=== PATIENT | female | born 1965 | race African-American/Black ===

== ENCOUNTER → 2021-06-20 10:49 | Outpatient (CLI) | payer BC, SELFPAY ==
--- NOTE | ~2021-06-20 | US_ITS ---
EXAMINATION: US pelvic complete w TV DATE: 06/20/2021 11:22 INDICATION: Postmenopausal bleeding TECHNIQUE: Multiple transabdominal and endovaginal sonographic images of the pelvis were obtained. COMPARISON: None. FINDINGS: The uterus measures 5.8 x 2.9 x 3.9 cm. The endometrial complex measures 4 mm. The right ov floyd is not visualized however no right adnexal abnormality is seen. The left ovary measures 1.8 x 2 x 1.7 cm. There is normal vascular flow in the left ovary. There is no free fluid in the pelvis. IMPRESSION: 1. No sonographic correlate for the patient's symptoms. Reviewed, dictated and finalized at location A. BUMPER
== END ==
PROVIDERS: PCP Nurse Practitioner Family; Visit Provider Nurse Practitioner Family
DX: N95.0 Postmenopausal bleeding (principal)
CPT/HCPCS: 76830; 76856

== ENCOUNTER 2022-01-08 10:38 | Outpatient (CLI) | payer OTHER, BC, SELFPAY ==
--- NOTE | ~2022-01-08 | US_ITS ---
EXAMINATION: US transvaginal DATE: 01/08/2022 11:12 INDICATION: Postmenopausal bleeding Comparison:Ultrasound dated 06/20/2021 TECHNIQUE: Multiple transabdominal and endovaginal sonographic images of the pelvis performed. FINDINGS: The uterus measures 6.2 x 3.4 x 4.2 cm. The endometrial complex measures 3.5 mm. The ovaries are not visualized. There is no free fluid in the pelvis. There are no abnormal masses seen on either side. IMPRESSION: 1. Unremarkable pelvic ultrasound. Reviewed, dictated and finalized at location A.
== END 2022-01-08 10:39 ==
LOC: MICIMG 10:39
PROVIDERS: PCP Nurse Practitioner Family; Visit Provider Nurse Practitioner
DX: N95.0 Postmenopausal bleeding (principal)
CPT/HCPCS: 76830

== ENCOUNTER 2022-04-06 10:39 | Outpatient (CLI) | payer OTHER, BC, SELFPAY ==
--- NOTE | ~2022-04-06 | DEXA_ITS ---
Bone Density Report Name: CASTILLO TORIBIO Age: 56 Sex: Female Ethnicity: Black Date of : 1965 Indication: osteopenia; monitoring treatment; height loss; asthma or emphysema; postmenopausal Referring Provider: JEAN, YANDEL Study: Bone densitometry was performed. Exam Date: April 06, 2022 Accession number: [id number] Bone Density: Region BMD T-score Z-score Classification AP Spine (L1-L4) 1.018 -0.3 0.3 Normal Femoral Neck (Left) 0.707 -1.3 -0.7 Osteopenia Total Hip (Left) 0.877 -0.5 -0.3 Normal Femoral Neck (Right) 0.653 -1.8 -1.1 Osteopenia Total Hip (Right) 0.817 -1.0 -0.7 Normal Total Hip Mean 0.847 -0.8 -0.5 Normal World Health Organization criteria for BMD impression classify patients as: Normal (T-score at or above -1.0), Osteopenia (T-score between -1.0 and -2.5), or Osteoporosis (T-score at or below -2.5). 10-year Fracture Risk: FRAX not reported because: Treated for osteoporosis Previous Exams: Region Exam Age BMD T-score BMD Change BMD Change Date g/cm2 vs Baseline vs Previous AP Spine(L1-L4) 04/06/2022 56 1.018 -0.3 0.058* 0.058* 07/27/2019 54 0.959 -0.8 Total Hip(Left) 04/06/2022 56 0.877 -0.5 0.018 0.018 07/27/2019 54 0.859 -0.7 Total Hip(Right) 04/06/2022 56 0.817 -1.0 0.017 0.017 07/27/2019 54 0.800 -1.2 *Denotes significance at 95% confidence level, LSC for AP Spine = 0.022 g/cm2, LSC for Total Hip = 0.027 g/cm2 Clinical Information Provided by Patient: Is being treated for osteoporosis Has used the following medications: HRT (i.e. estrogen/hormone therapy) Has the following medical conditions: Asthma or Emphysema Patient maximum height was 59 Menopause Age: 49 No regular weight bearing exercise Onset of menses at age 13 Number of children 3 Impression: The patient has low bone mass, based on the Right Femoral Neck T-score. No significant bone loss was observed. Discussion: PATIENT UNDER TREATMENT WITH NO SIGNIFICANT BMD LOSS SINCE LAST EXAM. In an untreated patient, BMD typically declines with age. A lack of decline or gain is usually a sign that treatment is efficacious and fracture risk is reduced. It is important to ask patients whether they are taking their medications and to encourage continued and appropriate compliance with their osteoporosis therapies to reduce fracture risk. It is also important to review their risk factors and en
== END 2022-04-06 10:40 ==
LOC: MICIMG 10:40
PROVIDERS: PCP Nurse Practitioner Family; Visit Provider Nurse Practitioner
DX: M81.0 Age-related osteoporosis without current pathological fracture (principal); M85.852 Other specified disorders of bone density and structure, left thigh; M85.851 Other specified disorders of bone density and structure, right thigh
CPT/HCPCS: 77080

== ENCOUNTER 2024-06-16 12:30 | Outpatient (CLI) | payer BC, SELFPAY ==
--- NOTE | ~2024-06-16 | XR_ITS ---
Clinical Indication: Preoperative clear PA and lateral views of the chest: Comparison: None Findings: The lungs are clear, without evidence of focal consolidation or pleural effusion. Cardiome diastinal silhouette is within normal limits. Bones and soft tissues are unremarkable. Impression: Normal chest. Reviewed, dictated and finalized at location . [facility] Impression: Normal chest.
--- NOTE | 2024-06-16 13:01 | ECG_ITS ---
Test Date: 2024-06-16 13:08:37 Measurements Intervals [place] Rate: 68 P: 55 CO: 160 QRS: 61 QRSD: 81 T: 61 QT: 328 QTc: 349 Interpretive Statements SINUS RHYTHM NONSPECIFIC T-WAVE ABNORMALITY No previous ECG available for comparison Electronically Signed On 06-16-2024 18:45:12 TECHNICAL STAFF ENGINEER by Melissa Adams M.D.
--- OUTSIDE RECORDS SUMMARY | 2024-06-16 13:08 | XMS_ITS | CONTINUITY OF CARE DOCUMENT ---
Author Name janneth lagunas Address Unknown Organization [facility] Address [address] [facility] [address] [place] [address] Phone [phone] Care Team Providers Care Windows Systems Admin Name Role Phone Ethan You MD Unavailable MABEL GARCIA Unavailable [phone] MABEL GARCIA Unavailable [phone] INS[employer]ANCE PROVID[employer] Payer name Policy type / Coverage type [place] red green party ID [facility] [id number]
--- OUTSIDE RECORDS SUMMARY | 2024-06-16 13:08 | XMS_ITS | Continuity of Care Document ---
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 [place], [address], [place] - S AURSOS 04/13/2024 11:31:57 OBGyn Episode No OBEpisode recorded.
--- OUTSIDE RECORDS SUMMARY | 2024-06-16 13:08 | XMS_ITS | Data Portability ---
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 Sm[facility] 04/22/2023 13:39:59 Do You Have An Advance Directive? No [id number] Information not available 09/02/2022 What Is Your Level Of Alcohol Consumption? None [id number].0301 [id number] Information not available 09/02/2022 How Many Years Have You Consumed Alcohol? 0 Information not available 04/22/2023 What Is Your Level Of Caffeine Consumption? Moderate [id number] Information not available 09/02/2022 How Much Tobacco Do You Chew? None [id number] [id number] Information not available 09/02/2022 In The 14 [...] Type Of Diet Are You Following? REGULAR MIGRATION.0306 [id number] Information not available 09/02/2022 Which Illicit Or Recreational Drugs Have You Used? None Information not available 04/22/2023 Do You Or Have You Ever Used E-cigarettes Or Vape? Never Used Electronic Cigarettes Information not available 04/22/2023 What Is The Highest Grade Or Level Of School You Have Completed Or The Highest Degree You Have Received? [id number] Information not available 04/22/2023 Do You Have An Electrostatic Air Filter? 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 Never Used Smokeless Tobacco MIGRATION.[id number] [id number] Information not available 09/02/2022 Are There Any Smokers In Your House? No Information not available 04/22/2023 How Much Tobacco Do You Smoke? No MIGRATION.0301 [id number] Information not available 09/02/2022 Do You Feel Stressed (tense, Restless, Nervous, Or Anxious, Or Unable To Sleep At Night)? [id number] Information not available 04/22/2023 Do You Use Sunscreen Routinely? Yes Summer Information not available 04/22/2023 Have You Recently Traveled Abroad? No Information not available 04/22/2023 Do You Have Any Dietary Restrictions? No Information not available 04/22/2023 Sex: Female Functional Status Question Answer Note LastModified by Organizat ion Details LastModified Time What is your exercise level? Moderate [id number] Information not available 09/02/2022 Mental Status None recorded. Family History Relationship Description Onset Age of this Age Resolved Age Notes LastModified by Organization Details LastModified Time Mother Hypertensive disorder [id number] Not available 09/02/2022 02:51:44 Mother Diabetes mellitus MIGRATION.341 [id number] Not available 09/02/2022 02:51:44 Brother Hypertensive disorder MIGRATION.451 [id number] Not available 09/02/2022 02:51:44 Brother Diabetes mellitus MIGRATION.387 [id number] Not available 09/02/2022 02:51:45 Brother Obstructive sleep apnea syndrome Not available 2022 13:39:55 Sister Hypertensive disorder MIGRATION.267 [id number] Not available 09/02/2022 02:51:45 Sister Hypertensive disorder MIGRATION.955 [id number] Not available 09/02/2022 02:51:45 Sister Obstructive sleep apnea syndrome Not available 2022 13:39:55 Father Chronic obstructive pulmonary disease Not available 2022 13:39:55 Son Asthma MIGRATION.039 [id number] Not available 09/02/2022 02:51:45 Medical History Condition [...] HAVE YOU BEEN HOSPITALIZED OR SEEN IN [facility] IN THE PAST YEAR ? N ATHEROSCLEROSIS [...] Influenza, recombinant, quadrivalent, PF 4 completed Mariana Day, [employer] [address], [place], [address], [facility] 09/22/2023 16:24:25 Pneumococcal conjugate PCV20, polysaccharide [id number] conjugate, adjuvant, PF 4 completed Mariaan Day, [employer] [address], [place], [address], [facility] 01/10/2024 15:46:48 Influenza, recombinant, quadrivalent, PF 4 completed Mariana Day, [facility] [address], [place], [address], [facility] 04/13/2024 11:19:20 Past Encounters Encounter ID Performer Location Encounter Start Date Encounter Closed Date Diagnosis/Indication Diagnosis SNOMED-CT Code Diagnosis ICD10 Code [id number] [facility] Internal Med [facility] [address] [address] 09/26/2020 00:00:00 09/26/2020 19:14:03 [id number] [facility] Internal [facility] [address] [address] 10/24/2020 00:00:00 10/24/2020 15:45:29 [id number] [facility] Internal Med [facility] [address] [place], [place] [address]., [address] [address] 11/22/2020 00:00:00 11/22/2020 19:39:14 [id number] [facility] Internal Med [facility] [address] [address] 12/19/2020 00:00:00 12/19/2020 15:07:39 [id number] [facility] Internal Med [facility] [address] [place] [address] Ave[address] [facility] 15 [place] [address] 02/03/2021 00:00:00 02/03/2021 13:22:35 [id number] [facility] Internal Med [facility] [address] [place] [address] [address] [address] 02/24/2021 00:00:00 02/24/2021 14:15:14 [id number] [facility] [place] [address] [place] [address] 06/03/2021 00:00:00 06/03/2021 14:10:36 [id number] [facility] [place] [address] [place] [address] 07/01/2021 00:00:00 07/01/2021 15:12:07 [id number] [facility] [place] [address] [place] [address] 08/22/2021 00:00:00 08/22/2021 14:09:58 [id number] [facility] [place] [address] [place] [address] 09/26/2021 00:00:00 09/26/2021 12:29:21 [id number] [facility] [place] [address] [place] [address] 10/31/2021 00:00:00 10/31/2021 13:18:58 [id number] [facility] [place] [address] [facility] [address] [place] [address] 11/21/2021 00:00:00 11/21/2021 13:25:18 [id number] [facility] [place] [address] [place] [address] [address] [place] [address] 01/09/2022 00:00:00 01/09/2022 13:25:13 [id number] [facility] [place] [address] [place] [address] [address] [facility] 15 [place] [address] 02/13/2022 00:00:00 02/13/2022 14:23:07 [id number] [facility] [place] [address] [place] [address] [address] [address] 03/13/2022 00:00:00 03/13/2022 12:57:47 [id number] [facility] Internal Med [facility] [address] [place] [address] 07/02/2022 00:00:00 07/02/2022 17:02:34 [id number] [facility] Pulmonolo gy [place] [address] [place] [address] 07/22/2022 00:00:00 07/22/2022 13:40:20 [id number] LISY Chan [facility] Internal Med [facility] [address] [address] 09/24/2022 11:44:18 09/24/2022 12:23:27 Asthma 060735295 J45.909 Disorder o f vitamin B12 289631600 E53.8 Allergic rhinitis 397031 04 J30.9 Chronic constipation 236 234000 K59.09 Pulmonary hypertension 45615043 I27.20 Adult [facility] th examination 853287677 Z00.01 Cholesterol screening 27 5436663 Z13.220 Diabetes m ellitus screening 832404542 Z13.1 Thyroid di sorder screening 823298148 Z13.29 Chronic sinusitis 850870 00 J32.9 Wants to lose weight 170 987663 Z71.3 Depression screening 171 405940 Z13.31 Obesity 912736061 E66.9 Bereavement 10632959 Z63 .4 [id number] LISY Chan [facility] Internal Med [facility] [address] [address] 10/27/2022 10:07:20 10/27/2022 10:39:55 Asthma 289351469 J45.909 Disorder o f vitamin B12 733940588 E53.8 Allergic rhinitis 708424 04 J30.9 Chronic constipation 236 161258 K59.09 Pulmonary hypertension 18662250 I27.20 Chronic sinusitis 204825 00 J32.9 Wants to lose weight 170 669126 Z71.3 Obesity 784370003 E66.9 [id number] LISY Chan [facility] Internal Med [facility] [address] [address] 12/01/2022 12:08:56 12/01/2022 12:41:10 Asthma 518392027 J45.909 Disorder o f vitamin B12 457274858 E53.8 Allergic rhinitis 617853 04 J30.9 Chronic constipation 236 572511 K59.09 Pulmonary hypertension 95126797 I27.20 Chronic sinusitis 240216 00 J32.9 Wants to lose weight 170 680213 Z71.3 Obesity 605233235 E66.9 Bereavement 11745879 Z63 .4 [id number] LISY Chan [facility] Internal Med [facility] [address] [address] 12/29/2022 12:24:23 12/29/2022 13:00:50 Cobalamin deficiency 948392589 E53.8 Asthma 000710732 J45.90 9 Allergic rhinitis 194274 04 J30.9 Chronic constipation 236 444025 K59.09 Pulmonary hypertension 80912510 I27.20 Chronic sinusitis 753239 00 J32.9 Obesity 060623478 E66.9 Weight gain 9532342 R63. 5 Adult [facility] th examination 262511006 Z00.01 Hyperlipid emia screening 652751469 Z13.220 Diabetes m ellitus screening 096614176 Z13.1 Vitamin D deficiency 347 52493 E55.9 Depressive disorder 3548 9007 F32.A [id number] Rashad Christopher MD S_G Pulmonolo gy [place] [address] [place] [address] 04/22/2023 13:38:34 04/22/2023 14:55:12 Pulmonary hypertension 27472603 I27.20 Dyspnea on exertion 6084 5006 R06.09 Posterior rhinorrhea 758 49638 R09.82 [id number] MALIK Jaramillo [facility] [address] [place] [address] 05/13/2023 14:08:33 05/13/2023 15:15:32 Pain of right shoulder joint 1836438917 5895473 M25.805 [id number] LISY Chan [facility] Internal Med [facility] [address] 1 05/17/2023 14:50:23 05/17/2023 15:41:34 Cobalamin deficiency 287891235 E53.8 Asthma 524278395 J45.90 9 Allergic rhinitis 323958 04 J30.9 Chronic constipation 236 616872 K59.09 Pulmonary hypertension 69954373 I27.20 Chronic sinusitis 115527 00 J32.9 Obesity 290377581 E66.9 Vitamin D deficiency 347 17331 E55.9 Depressive disorder 3548 9007 F32.A Pain of bi lateral hands 3918960335 9735586 M79.641 M79.642 Low back pain 636531061 M54.50 [id number] Mariana Day APRN [facility] Internal Med [facility] [address] [place] [place] [address] 08/31/2023 16:48:50 08/31/2023 17:56:53 Cobalamin deficiency 962402727 E53.8 Chronic constipation 236 468188 K59.09 Acute sinusitis 99701064 J01.90 [id number] Mariana Day APRN [facility] Internal Med [facility] [address] [place] [place] [address] 1 12/02/2023 15:18:25 12/02/2023 16:21:08 Depressive disorder 18767531 F32.A Vitamin D deficiency 347 26405 E55.9 Cobalamin deficiency 190 723278 E53.8 Obesity 222764846 E66.9 [id number] Mariana Day APRN [facility] Internal Med [facility] [address] [address] 04/13/2024 10:54:03 04/13/2024 11:34:11 Screening for malignant neoplasm of colon 044423412 Z12.11 Screening mammography 24 834929 Z12.31 Hepatitis C screening 41 6377325 Z11.59 Obesity 770656552 E66.9 Vitamin D deficiency 347 97075 E55.9 Cobalamin deficiency 190 171585 E53.8 Diabetes m ellitus screening 123213434 Z13.1 Hyperlipid emia screening 503877583 Z13.220 Screening for disorder 013171939 Z13.9 Thyroid di sorder screening 793369066 Z13.29 Health Concerns Section Related Observation LastModified by Organization Detai ls LastModified Time None Recorded Concern Status LastModified by Organization Details LastModified Time None Recorded Advance Directives Directive N: Payers Encounter Date Sequence Insurance Name Policy Number Policy [place] Covered Member ID [place] Member ID Guarantor Name 05/13/2023 1 [place] [id number] Kal Carrero Mark [id number] Crista Hernandes Mark 05/17/2023 1 [place] [id number] Kal Carrero Mark [id number] 26 Crista Hernandes Mark 08/31/2023 1 [place] [id number] Kal Carrero Mark [id number] 26 Crista Olivia Mark 12/02/2023 1 [place] [id number] Kal Carrero Mark [id number] 26 Crista Hernandes Mark 04/13/2024 1 [place] [id number] Kal Flores [id number] 26 Crista Olivia Mark Notes Date Note Type Note Provider Name and Address Organization Details Recorded Time 05/17/2023 text/html Crista presents today for follow-up. She had wanted [...] they have referred her to a different manipulator operator due to her positive GABRIELLE and pulmonary hypertension. She would like to get a B12 today. Nandini Steve, [employer] H [employer]-C [address] [facility], [facility] [address], [place], [address], [facility] [employer] 05/17/2023 16:15:31 08/31/2023 text/html 08/31/23Crista presents today to establish care as [...] infection and is having green nasal drainage. 3Cshaina presents today for follow-up. She had wanted [...] they have referred her to a different manipulator operator due to her positive GABRIELLE and pulmonary hypertension. She would like to get a B12 today. Mariana Day, [employer] [address] [facility], [address], [place], [address], [facility] [employer] 08/31/2023 17:43:32 12/02/2023 text/html Crista presents today for 3 month follow up. She states that her weight has been going up since her second month of [employer]. She denies any other issues. She does [...] infection and is having green nasal drainage. 3Cshaina presents today for follow-up. She had wanted [...] She did not have any imaging at [facility] for the low back or the hands. She reports the pain is improved in both the hands and the back when she takes Excedrin. She did see pulmonology, they have referred her to a different manipulator operator due to her positive GABRIELLE and pulmonary hypertension. She would like to get a B12 today. Mariana Day, [employer] [address] [facility], [facility] [address], [place], [address], [place] [facility] 12/03/2023 11:14:34 04/13/2024 text/html Crista presents today for follow up to [facility]. She denies any nausea/vomiting, diarrhea/constipati on. She states that her appetite is good, but she eats smaller portions. 12/02/2023shaina presents today for 3 month follow up. She states that her weight has been going up since her second month of [facility]. She denies any other issues. She does state that her energy levels are low. 08/31/23lAonsoshruthirolan presents today to establish care as per [...] they have referred her to a different manipulator operator due to her positive GABRIELLE and pulmonary hypertension. She would like to get a B12 today. Mariana Day APRN [address] [facility], [facility] [address], [place], [address], [place] [facility] [employer] 04/13/2024 11:31:57 OBGyn Episode No OBEpisode recorded.
== END 2024-06-16 12:31 | disposition home or self-care (01) ==
PROVIDERS: PCP Nurse Practitioner Family; Visit Provider Nurse Practitioner Family
DX: Z01.818 Encounter for other preprocedural examination (principal); R94.31 Abnormal electrocardiogram [ECG] [EKG]
CPT/HCPCS: 71046; 93005